=== PATIENT | male | born 1980 | race American Indian/Alaskan Native ===

== ENCOUNTER 2018-08-19 15:04 | Emergency (ER) | payer OTHER ==
[2018-08-19] MEDS ORDERED: IBUPROFEN PO ONE (15:14)
[2018-08-19] MEDS ORDERED: ZOFRAN ODT PO ONE (15:14)
[2018-08-19] MEDS ORDERED: PERCOCET 5/325 PO ONE (15:14)
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
[2018-08-19 18:07] VITALS: BP 136/74
== END 2018-08-19 18:08 | disposition home or self-care (01) ==
LOC: ED 15:04
DX: S09.90XA Unspecified injury of head, initial encounter (principal); S40.022A Contusion of left upper arm, initial encounter; R07.81 Pleurodynia; V49.49XA Driver injured in collision with other motor vehicles in traffic accident, initial encounter; Y93.89 Activity, other specified; Y99.8 Other external cause status; Y92.410 Unspecified street and highway as the place of occurrence of the external cause
CPT/HCPCS: 70450; 72125; Q0162